=== PATIENT | male | born 1980 | race Caucasian/White ===

== ENCOUNTER 2017-04-26 22:55 | Emergency (ER) | payer BC, OTHER ==
[2017-04-26 23:10] VITALS: O2SAT 96
--- NOTE | 2017-04-26 23:14 | C.PDOC ---
History Of Present Illness 37 year old male who presents to the ER with a complaint of constant left testicular that began at 20:00 this evening. Patient states he has had similar gagnon in the past that has resolved on its own; however, this time it has not. Patient has not taken anything for the pain; denies fever, vomiting, dysuria, or abdominal pain. Time Seen by Provider: 04/26/17 23:00 Chief Complaint (Nursing): Male Genitourinary History Per: Patient History/Exam Limitations: no limitations Onset/Duration Of Symptoms: Hrs Current Symptoms Are (Timing): Still Present Quality Of Discomfort: Unable To Describe Associated Symptoms: denies: Fever, Chills, Nausea, Vomiting, Urinary Symptoms Alleviating Factors: None Recent travel outside of the [place]: No Past Medical History Reviewed: Historical Data, Nursing Documentation, Vital Signs Vital Signs: Last Vital Signs Temp 98 F 04/26/17 23:05 Pulse 101 H 04/26/17 23:05 Resp 20 04/26/17 23:05 BP 120/78 04/26/17 23:05 Pulse Ox 96 04/27/17 02:11 - Medical History PMH: Asthma, Depression, HTN, Hypercholesterolemia Surgical History: No Surg Hx Family History: States: Unknown Family Hx - Social History Hx Tobacco Use: No Hx Alcohol Use: Yes Hx Substance Use: No - Immunization History Hx Tetanus Toxoid Vaccination: No Hx Influenza Vaccination: No Hx Pneumococcal Vaccination: No Review Of Systems Constitutional: Negative for: Fever, Chills Cardiovascular: Negative for: Chest Pain, Palpitations Respiratory: Negative for: Shortness of Breath Gastrointestinal: Negative for: Nausea, Vomiting, Abdominal Pain Genitourinary: Positive for: Scrotal Pain. Negative for: Dysuria Skin: Negative for: Rash Neurological: Negative for: Weakness, Numbness Physical Exam - Physical Exam Appears: Non-toxic Skin: Normal Color, Warm, Dry Head: Atraumatic, Normacephalic Oral Mucosa: Moist Chest: Symmetrical, No Tenderness Cardiovascular: Rhythm Regular, No Murmur Respiratory: Normal Breath Sounds, No Rales, No Rhonchi, No Wheezing Gastrointestinal/Abdominal: Soft, No Tenderness Male Genital: Testicular Tenderness (Left), No Testicular Swelling, No Other ( Redness, Warmth) Neurological/Psych: Oriented x3, Normal Speech, Normal Cognition ED Course And Treatment O2 Sat by Pulse Oximetry: 96 (Room air) Pulse Ox Interpretation: Normal - CT Scan/US US Scrotum Other Rad Studies (CT/US): Read By Radiologist, Radiology Report Reviewed CT/US Interpretation: EXAM: US Scrotum. CLINICAL HISTORY: 37 years old, male; Pain; Scrotum pain; Additional info: Swelling and pain. TECHNIQUE: Real-time ultrasound of the scrotum with color Doppler and image documentation. COMPARISON: No relevant prior studies available. FINDINGS: Right testicle: Unremarkable. No mass. No torsion. Left testicle: Unremarkable. No mass. No torsion. Epididymides: 3 mm left epididymal cyst. Scrotum: Bilateral hydroceles. IMPRESSION: Bilateral hydroceles. Normal testicles with normal blood flow. Medical Decision Making Medical Decision Making: Toradol administered. Urine culture and testicular US ordered. 217 the pt reports his pain has resolved. disc results, plan for f/u, rtr Disposition - Disposition Disposition: HOME/ ROUTINE Disposition Time: 02:17 Condition: IMPROVED - Clinical Impression Clinical Impression: Hydrocele of testis - Scribe Statement The provider has reviewed the documentation as recorded by the Scribbrian Webb All medical record entries made by the Chato were at my direction and personally dictated by me. I have reviewed the chart and agree that the record accurately reflects my personal performance of the history, physical exam, medical decision making, and the department course for this patient. I have also personally directed, reviewed, and agree with the discharge instructions and disposition.
[2017-04-26 23:20] LABS: URINE BILIRUBIN NEGATIVE (NEGATIVE); URINE CLARITY Clear (Clear); URINE COLOR Yellow (YELLOW); URINE GLUCOSE (UA) NORMAL (Normal); URINE LEUKOCYTE ESTERASE NEG Leu/uL (Negative); URINE NITRATE NEGATIVE (NEGATIVE); URINE PROTEIN NEGATIVE (NEGATIVE); URINE UROBILINOGEN NORMAL mg/dL (0.2-1.0)
[2017-04-26 23:29] LABS: URINE BLOOD TRACE (NEGATIVE)
[2017-04-27 02:34] VITALS: BP 99/64; PULSE 76; RESP 18; TEMP 98.3
--- NOTE | 2017-04-27 10:06 | US ---
HISTORY: swelling and pain TECHNIQUE: Realtime sonography through the scrotum with color and doppler flow. COMPARISON: None Available. FINDINGS: RIGHT TESTICLE: Measures 6.2 x 2.8 x 4.0 cm. Normal echotexture and flow. RIGHT EPIDIDYMIS: Epididymal head measures 0.8 x 1.1 x 1.4 cm. Grossly unremarkable appearance with normal flow. LEFT TESTICLE: Measures 6.6 x 2.8 x 3.8 cm. Normal echotexture and flow. LEFT EPIDIDYMIS: Epididymal head measures 0.8 x 1.3 x 1.7 cm. There is a 3 mm simple cyst in the head of the epididymis. Normal flow. HYDROCELE: There are bilateral moderate-sized hydroceles with internal debris. VARICOCELE: None. OTHER FINDINGS: None. IMPRESSION: 1. No evidence for testicular mass, torsion or epididymal orchitis. 2. Bilateral moderate size complicated hydroceles. A preliminary report was provided by [facility] services.
== END 2017-04-27 02:29 | disposition home or self-care (01) ==
LOC: C.ER 22:55
DX: N43.3 Hydrocele, unspecified (principal)
CPT/HCPCS: 76870; 81001; 96374; 99284; J1885